=== PATIENT | male | born 1980 | race Caucasian/White ===

== ENCOUNTER 2017-07-04 21:25 | Emergency (ER) | payer SELFPAY ==
[~2017-07-04] VITALS: Ht 182.9 cm; Wt 97.5 kg
[2017-07-04 21:31] VITALS: BP 139/83
== END 2017-07-05 00:21 | disposition home or self-care (01) ==
LOC: ED 21:25
DX: B86 Scabies (principal); R03.0 Elevated blood-pressure reading, without diagnosis of hypertension